=== PATIENT | male | born 1940 | race Caucasian/White ===

== ENCOUNTER 2024-06-19 02:18 | Emergency (ER) | payer MEDICARE ==
[~2024-06-19] VITALS: Ht 190.5 cm; Wt 121.2 kg
[2024-06-19] MEDS ORDERED: ATORVASTATIN CA40 M1 PO (02:30)
[2024-06-19] MEDS ORDERED: LEVOTHYROXINE175 MCG PO (02:31)
[2024-06-19] MEDS ORDERED: CLOPIDOGREL75 MG PO (02:31)
[2024-06-19] MEDS ORDERED: Ketorolac Tromethamine 30 MG/ML VIAL IM ONE (06:30)
[2024-06-19] MEDS ORDERED: NAPROXEN250 MG PO (06:35)
== END 2024-06-19 06:53 | disposition home or self-care (01) ==
LOC: ED 02:18
DX: S43.101A Unspecified dislocation of right acromioclavicular joint, initial encounter (principal); I10 Essential (primary) hypertension; R51.9 Headache, unspecified; W06.XXXA Fall from bed, initial encounter; Y93.89 Activity, other specified; Y92.009 Unspecified place in unspecified non-institutional (private) residence as the place of occurrence of the external cause; Y99.8 Other external cause status